=== PATIENT | male | born 1970 | race Caucasian/White ===

== ENCOUNTER → 2018-01-24 | Day surgery (SDC) | payer BC ==
[2018-01-23 16:16] LABS: BASOPHILS % 0.4 % (0.0-1.0); EOSINOPHILS % 0.4 % (0.0-6.0); HEMATOCRIT 45.6 % (38.2-49.6); HEMOGLOBIN 15.6 g/dL (14.0-18.0); LYMPHOCYTES # (AUTO) 1.7 (1.0-3.2); LYMPHOCYTES % 30.5 % (18.0-39.1); MEAN CORPUSCULAR HEMOGLOBIN 31.3 pg (28-32); MEAN CORPUSCULAR HGB CONC 34.2 g/dL (31-35); MEAN CORPUSCULAR VOLUME 91.4 fL (81-99); MONOCYTES # (AUTO) 0.4 (0.2-0.8); MONOCYTES % 7.8 % (4.4-11.3); NEUTROPHILS # (AUTO) 3.4 (2.1-6.9); NEUTROPHILS % 60.7 % (38.7-80.0); PLATELET COUNT 156 x10e3/uL (140-360); RED BLOOD COUNT 4.99 x10e6/uL (4.3-5.7)
--- NOTE | 2018-01-23 16:31 | Diagnostic Imaging Report ---
EXAMINATION: CHEST 2 VIEWS INDICATION: Foot pain. Preop COMPARISON: 11/10/2013 FINDINGS: TUBES and LINES: None. LUNGS: Lungs are well inflated. Lungs are clear. There is no evidence of pneumonia or pulmonary edema. PLEURA: No pleural effusion or pneumothorax. HEART AND MEDIASTINUM: The cardiomediastinal silhouette is unremarkable. BONES AND SOFT TISSUES: No acute osseous lesion. Soft tissues are unremarkable. UPPER ABDOMEN: No free air under the diaphragm. IMPRESSION: No acute thoracic abnormality. Signed by: Dr. Ry Sinclair M.D. on 01/23/2018 4:28 PM
[2018-01-23 17:16] LABS: ANION GAP 14.1 mmol/L (8-16); BLOOD UREA NITROGEN 16 mg/dL (7-26); BUN/CREATININE RATIO 14 (6-25); CALCIUM 9.7 mg/dL (8.4-10.2); CARBON DIOXIDE 23 mmol/L (22-29); CHLORIDE 106 mmol/L (98-107); CREATININE, SERUM 1.17 mg/dL (0.72-1.25); EST GLOMERULAR FILTRATION RATE > 60 ML/MIN (60-); GLUCOSE 93 mg/dL (74-118); POTASSIUM 4.1 mmol/L (3.5-5.1); SODIUM 139 mmol/L (136-145)
[~2018-01-24] MED LIST: ALEVE; BUPIVACAINE HCL 0.5% INJ 30 ML VIAL INJ ONE; CELEBREX PO; CLINDAMYCIN PHOS 900MG/ 50ML 50 ML IV ONE; DEXAMETHASONE SOD PHOS INJ 4 MG/ML VIAL IV ONE; DEXAMETHASONE SOD PHOS INJ 4 MG/ML VIAL ONE; DICLOFENAC PO; FENTANYL CITRATE/PF 100MCG/2 ML INJ ONE; FIBER; GLYCOPYRROLATE INJ 1MG/ 5 ML SYR IV ONE; HYOSCYAMINE SULFATE 0.5 MG/ML INJ ONE; KETOROLAC TROMETHAMINE 30 MG/ML VIAL IV ONE; LIDOCAINE HCL 2% LOCAL INJ 5 ML SDV VIAL INJ ONE; LISINOPRIL10 MG PO; LYSINE1000 MG PO; MIDAZOLAM HCL 2 MG/2 ML VIAL ONE; NEOSTIGMINE 1 MG/ML 10ML VIAL ONE; NEXIUM PO; NEXIUM40 MG PO; ONDANSETRON HCL INJ 2 MG/ML VIAL IV ONE; PROPOFOL IV EMULSION 10 MG/ML 20 ML VIAL IV ONE; PROPOFOL IV EMULSION 10 MG/ML 50 ML VIAL ONE; SEVOFLURANE INHAL SOLN 250 ML PEN BTL INH ONE; TYLENOL; Z.0.MULTIVITAMINS1 E; ZEGRID
--- OUTSIDE RECORDS SUMMARY | 2018-01-24 05:32 | XMS REPORT | Summary of Care ---
Author Author ANA PAULA PATRICIO M.D. Organization Unknown Address [facility] Phone Unavailable Care Team Providers Care Socket Welder Helper Name Role Phone ANA PAULA PATRICIO M.D. Unavailable Unavailable IMANI SOTO Unavailable Unavailable Unavailable Unavailable Functional Status Name Dates Details Functional status health issues are not documented Status: Name Dates Details Cognitive status health issues are not documented Status: Problems Name Dates Details Obstructive sleep apnea (327.23, G47.33) Status: Active Medications Name Dates Details NexIUM CPDR Active Lisinopril TABS * Refills: 0 Active Allergies and Adverse Reactions Name Dates Details No Known Drug Allergies (Allergy) Status: Active Procedures Procedure Dates Details Procedures not documented Immunization Name Dates Details Immunizations not documented Social History Name Dates Details - Status: Name Dates Details Never smoker Vital Signs Date Test Result Details [id number] BP Systolic 133 mm[Hg] Status: BP Diastolic 86 mm[Hg] Status: Height 68.5 in Status: Weight 214 lb Status: Body Mass Index Calculated 32.07 kg/m2 Status: Body Surface Area Calculated 2.11 m2 Status: Heart Rate 71 /min Status: Results Date Description Value Details Results not documented Plan of Care Name Dates Details Planned Observations Planned Goals not documented Planned Encounters Appointment; ANA PAULA PATRICIO M.D. On: 10-Sep-2017 8:15 Interventions Provided Plan* 1. Will increase CPAP to 10. FU in 1 month Instructions Name Dates Details Instructions not documented Encounters Appointment; AMANDA IBARRA Encounter Diagnosis: Problem not documented On: 13-Jan-2016 11:00 Appointment; AMANDA IBARRA Encounter Diagnosis: Problem not documented On: 10-Feb-2016 10:15 Appointment; ANA PAULA PATRICIO M.D. Encounter Diagnosis: Problem not documented On: 09-Aug-2017 15:30
--- OUTSIDE RECORDS SUMMARY | 2018-01-24 05:32 | XMS REPORT ---
Author Author [facility] Address Unknown Phone Unavailable Care Team Providers Care Fitness And Wellness Manager Name Role Phone COLT BECERRA Unavailable Unavailable Problems This patient has no known problems. Allergies, Adverse Reactions, Alerts This patient has no known allergies or adverse reactions. Medications This patient has no known medications. Results Test Description Test Time Test Comments Text Results Atomic Results Result Comments CHEST 2 VIEWS 2018-01-23 16:28:00 [place] [id number] Patient Name: ISSAC BARRERA MR #: [id number] : 1970 Age/Sex: 47/M Req #: [id number] Adm Physician: Ordered by: COLT BECERRA DPM Report #: [id number] Location: OR Room/Bed: Procedure: [id number] DX/CHEST 2 VIEWS Exam Date: Exam Time: REPORT STATUS: Signed EXAMINATION: CHEST 2 VIEWS INDICATION: Foot pain. Preop COMPARISON: 11/10/2013 FINDINGS: TUBES and LINES: None. LUNGS: Lungs are well inflated. Lungs are clear. There is no evidence of pneumonia or pulmonary edema. PLEURA: No pleural effusion or pneumothorax. HEART AND MEDIASTINUM: The cardiomediastinal silhouette is unremarkable. BONES AND SOFT TISSUES: No acute osseous lesion. Soft tissues are unremarkable. UPPER ABDOMEN: No free air under the diaphragm. IMPRESSION: No acute thoracic abnormality. Signed by: Dr. Ry Sinclair M.D. on 01/23/2018 4:28 PM Dictated By: RY SINCLAIR MD, MD 27 Transcribed By: BELKIS on 01/23/181627 COPY TO: COLT BECERRA DPM
[2018-01-24 10:10] VITALS: BP 117/79
--- NOTE | 2018-01-24 13:40 | Operative Report ---
DATE OF PROCEDURE: January 24, 2018 PREOPERATIVE DIAGNOSIS: Large plantar fibroma, multiple, plantar aspect of the left foot. POSTOPERATIVE DIAGNOSIS: Large plantar fibroma, multiple, plantar aspect of the left foot. TITLE OF OPERATION: Excision of the plantar fibroma, plantar fibromatosis, radical plantar aspect of the left foot. ANESTHESIA: General endotracheal. HEMOSTASIS: A right thigh tourniquet at 350 mmHg. PROCEDURE IN DETAIL: The patient was taken to the operating room in a mildly sedated state and placed upon the operating table in supine position. Following the induction of general anesthetic, the left lower extremity was elevated to 60 degrees to exsanguinate before inflating the pneumatic thigh tourniquet to 350 mmHg to create hemostasis. The right lower extremity was placed upon the operating table prior to performing the following procedure. Surgical planning was performed. There were 2 previous wounds from regional plantar fibroma excision. These 2 wounds had healed with hyperplasia and were considered within the serpentine plantar fibroma, plantar fasciectomy incision which was approximately 8 cm in length, extending from an area just proximal to the 1st metatarsophalangeal joint, proximal and medial, through the central arch and all the way out the plantar medial aspect of the insertion into the plantar calcaneus. The serpentine incision included 2 semielliptical incisions creating a flap closure of the left foot after radical plantar fibroma excision. The surgical planning was performed with pen and ink, and transverse hashmarks were used to facilitate adequate and appropriate closure of the flap. Incision and flap creation was performed approximately 8 cm serpentine in nature. The large plantar fibroma was noted adhered to skin on the plantar aspect and adhered to muscle, soft tissue, nerve, artery, vein on the more dorsal aspect of the fibroma. The entirety of the fibroma was resected in 1 piece starting from the medial 1st metatarsophalangeal joint and extending through the central arch all the way down to that plantar medial insertion. The 2 recurrent areas were noted to be significantly scarred with fibroma regrowth. All areas were resected utilizing combination of sharp and blunt dissection, taking great care to avoid any compromise of the deep tissues or skin edges. With the appropriate flap having thus been fashioned slightly derotational to cover those 2 voids, the area was then irrigated with copious amounts of sterile saline solution. Deep tissue TLS drain was installed, and the appropriate underlying human tissue allograft was applied to facilitate healing and replace the void left where the plantar fascia was excised. This having been accomplished and adequate hemostasis achieved with excellent healing potential, deep closure was a combination of 2-0 and 3-0 Vicryl. A skin closure with a flap advancement and rotation was then performed utilizing 4-0 nylon. Combination of horizontal mattress and individual interrupted sutures was used. The area was then blocked with 0.5 Marcaine, Decadron [place]. The release of the pneumatic thigh tourniquet showed a normal hyperemic flush to all digits of the left foot. The drain was noted to be functional, and the patient left the operating room with vital signs stable, in apparent satisfactory condition, having tolerated both anesthetic and procedure very well. Job#: [id number] LORENE
== END | disposition home or self-care (01) ==
LOC: OR 05:26
PROVIDERS: ATTEND Podiatrist Foot Surgery
DX: M72.2 Plantar fascial fibromatosis (principal); M19.90 Unspecified osteoarthritis, unspecified site; G47.33 Obstructive sleep apnea (adult) (pediatric); I10 Essential (primary) hypertension; K21.9 Gastro-esophageal reflux disease without esophagitis; I45.10 Unspecified right bundle-branch block; Z88.1 Allergy status to other antibiotic agents; Z01.810 Encounter for preprocedural cardiovascular examination; Z01.812 Encounter for preprocedural laboratory examination; Z01.818 Encounter for other preprocedural examination
CPT/HCPCS: 28062; 36415; 71046; 80048; 85025; 88304; 93005; J1100; J1885; J1980; J2001; J2250; J2405; J2704; J2710; J3490; Q4100